=== PATIENT | female | born 1995 | race Caucasian/White ===

== ENCOUNTER 2019-12-24 23:26 | Emergency (ER) | payer OTHER ==
[~2019-12-24] VITALS: Ht 152.4 cm; Wt 90.7 kg
[2019-12-24 23:26] VITALS: BP 156/97
--- NOTE | 2019-12-25 00:03 | NUR ---
PT TAKEN TO BED 9
--- NOTE | 2019-12-25 00:05 | NUR ---
PT C/O EPIGASTRIC PAIN 06/27 BEGINNING 1600 TODAY. STATES TAKING TYLENOL AT 1900 NO RELIEF. LAST BM TODAY 1700 HARD. DENIES CONSTIPATION. C/O INTERMITTENT NAUSEA NO VOMITING. VSS. STATES SHE IS PASSING GAS BUT IS NOT BURPING.
[2019-12-25] MEDS ORDERED: NACL 0.9% 500 ML IV ONE (00:24)
[2019-12-25] MEDS ORDERED: ONDANSETRON 4 MG/2 ML VIAL IVP ONE (00:25)
[2019-12-25] MEDS ORDERED: KETOROLAC 30 MG/ML VIAL IVP ONE (00:25)
--- NOTE | 2019-12-25 00:30 | NUR ---
TORADOL, ZOFRAN AND IVF BOLUS STARTED. WILL CONTINUE TO MONITOR.
[2019-12-25 00:36] LABS: BASOPHILS # (AUTO) 0.1 K/uL (0.00-0.22); BASOPHILS % (AUTO) 0.6 % (0.0-2.0); EOSINOPHILS # (AUTO) 0.3 K/uL (0-0.4); EOSINOPHILS % (AUTO) 2.2 % (0.0-4.0); HEMATOCRIT 45.6 % (36-48); HEMOGLOBIN 14.9 g/dL (12.0-16.0); LYMPHOCYTES # (AUTO) 2.3 K/uL (2.5-16.5); LYMPHOCYTES % (AUTO) 19.4 % (20.5-51.1); MEAN CORPUSCULAR HEMOGLOBIN 28 pg (27-31); MEAN CORPUSCULAR HGB CONC 33 g/dL (33-37); MEAN CORPUSCULAR VOLUME 86.2 fL (80-94); MONOCYTES # (AUTO) 0.8 K/uL (0.8-1.0); MONOCYTES % (AUTO) 6.9 % (1.7-9.3); NEUTROPHILS # (AUTO) 8.3 K/uL (1.8-7.7); NEUTROPHILS % (AUTO) 70.9 % (42.2-75.2); PLATELET COUNT (AUTO) 309 K/uL (140-450); RED BLOOD CELL COUNT(AUTO) 5.29 MIL/uL (4.20-5.40); RED CELL DISTRIBUTION WIDTH 14.8 % (11.6-13.7); WHITE BLOOD COUNT (AUTO) 11.7 K/uL (4.8-10.8)
--- NOTE | 2019-12-25 00:55 | NUR ---
Ultrasound at bedside.
[2019-12-25 00:56] LABS: ALBUMIN 4.3 g/dL (3.4-5.0); ANION GAP 12.3 (8-16); CARBON DIOXIDE 30.3 mmol/L (21-32); POTASSIUM 3.6 mmol/L (3.5-5.1); TOTAL BILIRUBIN 0.3 mg/dL (0.0-1.0)
--- NOTE | 2019-12-25 01:15 | NUR ---
PT REPORTS IMPROVED PAIN. VSS. WILL CONTINUE TO MONITOR.
[2019-12-25 01:59] VITALS: BP 156/97
--- NOTE | 2019-12-25 02:00 | NUR ---
Patient discharged with v/s stable. Written and verbal after care instructions given and explained. Patient alert, oriented and verbalized understanding of instructions. Ambulatory with steady gait. All questions addressed prior to discharge. ID band removed. Patient advised to follow up with PMD. Rx of ZOFRAN, TRAMADOL, MOTRIN given. Patient educated on indication of medication including possible reaction and side effects. Opportunity to ask questions provided and answered.
--- NOTE | 2019-12-26 10:38 | NUR ---
Late entry. Confirmed with RN that 0.9NS IV completed at 0200
== END 2019-12-25 02:00 | disposition home or self-care (01) ==
LOC: MED 23:26
DX: R10.13 Epigastric pain (principal); R03.0 Elevated blood-pressure reading, without diagnosis of hypertension; R11.0 Nausea
CPT/HCPCS: 36415; 76705; 80053; 81002; 81025; 83690; 85025; 96374; 96375; 99284; J1885; J2405; J7030; Q0092

== ENCOUNTER 2020-03-12 10:45 | Emergency (ER) | payer OTHER ==
[~2020-03-12] VITALS: Ht 152.4 cm; Wt 89.4 kg
[2020-03-12 10:50] VITALS: BP 128/87
[2020-03-12] MEDS ORDERED: KETOROLAC 60 MG/2 ML VIAL IM ONE (11:15)
[2020-03-12 11:33] LABS: BASOPHILS % (AUTO) 0.6 % (0.0-2.0); EOSINOPHILS # (AUTO) 0.2 K/uL (0-0.4); EOSINOPHILS % (AUTO) 1.9 % (0.0-4.0); HEMATOCRIT 41.5 % (36-48); HEMOGLOBIN 13.7 g/dL (12.0-16.0); LYMPHOCYTES # (AUTO) 2.4 K/uL (2.5-16.5); MEAN CORPUSCULAR HEMOGLOBIN 29 pg (27-31); MEAN CORPUSCULAR HGB CONC 33 g/dL (33-37); MEAN CORPUSCULAR VOLUME 86.6 fL (80-94); MONOCYTES # (AUTO) 0.5 K/uL (0.8-1.0); MONOCYTES % (AUTO) 6.3 % (1.7-9.3); NEUTROPHILS % (AUTO) 62.2 % (42.2-75.2); PLATELET COUNT (AUTO) 325 K/uL (140-450); RED BLOOD CELL COUNT(AUTO) 4.79 MIL/uL (4.20-5.40); RED CELL DISTRIBUTION WIDTH 14.4 % (11.6-13.7); WHITE BLOOD COUNT (AUTO) 8.1 K/uL (4.8-10.8)
[2020-03-12 12:07] VITALS: BP 128/87
== END 2020-03-12 12:08 | disposition home or self-care (01) ==
LOC: MED 10:45
DX: N92.0 Excessive and frequent menstruation with regular cycle (principal)
CPT/HCPCS: 36415; 81002; 81025; 85025; 96372; 99283; J1885

== ENCOUNTER 2021-02-03 13:36 | Inpatient (IN) | payer OTHER, SELFPAY ==
[~2021-02-03] VITALS: Ht 152.4 cm; Wt 72.6 kg
[2021-02-03 13:42] VITALS: BP 140/89
[2021-02-03] MEDS ORDERED: KETOROLAC 30 MG/ML VIAL IVP ONE (14:55)
[2021-02-03] MEDS ORDERED: NACL 0.9% 1,000 ML IV ONE (14:55)
[2021-02-03] MEDS ORDERED: ONDANSETRON 4 MG/2 ML VIAL IVP ONE (14:55)
[2021-02-03 14:59] LABS: ALBUMIN 3.9 g/dL (3.4-5.0); CARBON DIOXIDE 27.4 mmol/L (21-32); CREATININE 0.6 mg/dL (0.6-1.3); POTASSIUM 4.4 mmol/L (3.5-5.1); TOTAL BILIRUBIN 0.5 mg/dL (0.0-1.0)
--- NOTE | 2021-02-03 15:01 | NUR ---
26 Y/O F BIB SELF FROM HOME, PATIENT PRESENTS TO ED WITH ABD PAIN RUQ RADIATES TO LUQ, PAIN STARTED 02/03/21. PT STATES SHE HAS NAUSEA AND VOMITING WITH CONSTIPATION. DENIES N/V/D; SKIN IS PINK/WARM/DRY; AAOX4 WITH EVEN AND STEADY GAIT; LUNGS CLEAR BL; HR EVEN AND REGULAR; PT DENIES ANY FEVER, CP, SOB, OR COUGH AT THIS TIME; PATIENT STATES PAIN OF 0/10 AT THIS TIME; VSS; PATIENT POSITIONED FOR COMFORT; HOB ELEVATED; BEDRAILS UP X2; BED DOWN. ER MD MADE AWARE OF PT STATUS. PT STATES SHE STILL HAS GALLBLADDER AND APPENDIX. PMH: NONE MED: TYLENOL 500MG NO RELIEF NKA
[2021-02-03 15:37] LABS: BASOPHILS % (AUTO) 0.3 % (0.0-2.0); LYMPHOCYTES # (AUTO) 1.2 K/uL (2.5-16.5); LYMPHOCYTES % (AUTO) 6.8 % (20.5-51.1); MEAN CORPUSCULAR HEMOGLOBIN 27 pg (27-31); MEAN CORPUSCULAR HGB CONC 33 g/dL (33-37); MEAN CORPUSCULAR VOLUME 81.3 fL (80-94); MONOCYTES # (AUTO) 1.1 K/uL (0.8-1.0); MONOCYTES % (AUTO) 5.9 % (1.7-9.3); NEUTROPHILS # (AUTO) 15.8 K/uL (1.8-7.7); PLATELET COUNT (AUTO) 359 K/uL (140-450); RED BLOOD CELL COUNT(AUTO) 4.91 MIL/uL (4.20-5.40); RED CELL DISTRIBUTION WIDTH 15.3 % (11.6-13.7); WHITE BLOOD COUNT (AUTO) 18.1 K/uL (4.8-10.8)
[2021-02-03] MEDS ORDERED: MORPHINE SULFATE 4 MG/ML SYR IVP ONE ×3 (16:05→19:10)
[2021-02-03] MEDS ORDERED: PIPERACILLIN/TAZOBACTAM 3.375 GM in DEXTROSE 5% 50 ML IV ONE (18:10)
[2021-02-03] MEDS ORDERED: PIPERACILLIN/TAZOBACTAM 3.375 GM VIAL IV ONE (18:14)
--- NOTE | 2021-02-03 19:08 | NUR ---
DISCONTINUED IV 20G ON L HAND DUE TO PAIN AND POOR FLUSHING, RESTARTED IV 22G ON L FOREARM, NO PAIN.
--- NOTE | 2021-02-03 19:09 | NUR ---
REPORT GIVEN TO KADIE LUO
--- NOTE | 2021-02-03 19:11 | NUR ---
RECEIVED REPORT FROM PUJA TURK FOR CONTINUITY OF CARE
[2021-02-03] MEDS ORDERED: ONDANSETRON 4 MG/2 ML VIAL IVP PRN (19:15)
[2021-02-03] MEDS: NACL 0.9% 1,000 ML IV SCH ×2 (19:15→21:01)
[2021-02-03 20:00] VITALS: BP 107/67
--- NOTE | 2021-02-03 20:26 | NUR ---
Admitted from ER TO [facility], with chief complaint of EPIGASTRIC PAIN, DESCRIBED PAIN OF 9-10, RADIATING TO THE RIGHT LOWER QUADRANT STARTED TODAY AT 0220, ON AND OFF. 26 y/o ,Female, Cooperative, AWAKE, A/OX4. RESPIRATION EVEN AND UNLABORED. CLEAR LUNG SOUNDS ON AUSCULTATION, ABDOMEN SOFT, NON-TENDER WITH POSITIVE BOWEL SOUNDS ON ALL QUADRANTS. ABLE TO AMBULATE BY HERSELF TO THE BR. HEAD TO TOE ASSESSMENT WITH CHARGE NURSE [place], SKIN IS INTACT. PAIN IN THE EPIGASTRIC AREA IS 8/10, WILL MEDICATE PER MD ORDER.oriented to call light, bed, phone,television, bathroom, smoking policy,visiting hours, procedures, ID bracelet on. Belongings list checked.
--- NOTE | 2021-02-03 20:44 | NUR ---
Patient will be admitted to care of DR. AGUILAR. Admited to [facility]. Will go to [id number]. Belongings list completed. Report to PUJA MONTES. Addendum: 02/03/21 at 2044 by [email or web address] ADMIT TIME: 1944
[2021-02-04] MEDS ORDERED: PIPERACILLIN/TAZOBACTAM 3.375 GM VIAL IV ONE (00:29)
[2021-02-04] MEDS: PIPERACILLIN/TAZOBACTAM 3.375 GM in DEXTROSE 5% 50 ML IV SCH ×3 (01:48→17:55)
--- NOTE | 2021-02-04 02:05 | NUR ---
Patient's Plan of Care was discussed and reviewed with BUSINESS MANAGEMENT MANAGER: SIMON MURPHY
[2021-02-04 03:10] VITALS: BP 104/60
[2021-02-04] MEDS: MORPHINE SULFATE 2 MG/ML SYR IVP PRN ×4 (03:15→21:54)
--- NOTE | 2021-02-04 04:00 | NUR ---
SLEEPING COMFORTABLY IN BED. VS STABLE.
[2021-02-04] MEDS: NACL 0.9% 1,000 ML IV SCH ×2 (05:15→17:21)
[2021-02-04 05:57] LABS: BASOPHILS % (AUTO) 0.3 % (0.0-2.0); EOSINOPHILS # (AUTO) 0.1 K/uL (0-0.4); EOSINOPHILS % (AUTO) 1.2 % (0.0-4.0); HEMATOCRIT 34.5 % (36-48); HEMOGLOBIN 11.4 g/dL (12.0-16.0); LYMPHOCYTES # (AUTO) 1.9 K/uL (2.5-16.5); LYMPHOCYTES % (AUTO) 18.8 % (20.5-51.1); MEAN CORPUSCULAR HEMOGLOBIN 27 pg (27-31); MEAN CORPUSCULAR HGB CONC 33 g/dL (33-37); MONOCYTES # (AUTO) 1.1 K/uL (0.8-1.0); MONOCYTES % (AUTO) 10.3 % (1.7-9.3); NEUTROPHILS # (AUTO) 7.1 K/uL (1.8-7.7); NEUTROPHILS % (AUTO) 69.4 % (42.2-75.2); PLATELET COUNT (AUTO) 316 K/uL (140-450); RED BLOOD CELL COUNT(AUTO) 4.16 MIL/uL (4.20-5.40); RED CELL DISTRIBUTION WIDTH 15.5 % (11.6-13.7); WHITE BLOOD COUNT (AUTO) 10.2 K/uL (4.8-10.8)
[2021-02-04 06:14] LABS: ALBUMIN 2.9 g/dL (3.4-5.0); ANION GAP 8.6 (8-16); CARBON DIOXIDE 29.2 mmol/L (21-32); CREATININE 0.8 mg/dL (0.6-1.3); MAGNESIUM 1.9 mg/dL (1.8-2.4); POTASSIUM 3.8 mmol/L (3.5-5.1); TOTAL BILIRUBIN 0.7 mg/dL (0.0-1.0)
--- NOTE | 2021-02-04 07:20 | NUR ---
CONDITION REMAIN STABLE. ENDORSED TO AM SHIFT NURSE FOR CONTINUITY OF CARE.
--- NOTE | 2021-02-04 07:30 | NUR ---
RECEIVED REPORT FROM NIGHT NURSE PATIENT IS AAOX4, AMBULATORY, ROOM AIR, SKIN INTACT, ON NPO, IV INTACT ON LEFT FA, FOR CONSULT ON DR IGLESIAS. SAFETY MEASURES IN PLACE AND CALL LIGHT WITHIN REACH. WILL CONTINUE TO MONITOR.
[2021-02-04 08:00] VITALS: BP 101/57
--- NOTE | 2021-02-04 09:09 | NUR ---
PATIENT HAS BEEN SCREENED AND CATEGORIZED LOW NUTRITION RISK. PATIENT WILL BE SEEN WITHIN 7 DAYS OF ADMISSION. 02/10/[address]
[2021-02-04] MEDS: ENOXAPARIN 40 MG/0.4 ML SYR SUBQ SCH (09:16)
--- NOTE | 2021-02-04 09:25 | NUR ---
MEDICATION DUE GIVEN PATIENT COMPLAINS OF PAIN 9/10 ON RIGHT UPPER QUADRANT OF THE ABDOMEN AND RADIATED TO THE RIGHT LOWER QUADRANT, CHECK VITAL SIGNS PRIOR TO MEDICATION BP 101/57 CA 70. PAIN MEDICATION GIVEN.
--- NOTE | 2021-02-04 09:47 | NUR ---
DC PLANNIN YRS OLD FEMALE PATIENT WAS ADMITTED FROM HOME WITH A DX OF CHOLECYSTITIS. PT HAS NO MEDICAL HISTORY. GB US SHOWED CHOLELITHIASIS WITH MILD GALLBLADDER WALL THICKENING AND REPRESENT ACUTE CHOLECYSTITIS. RAPID COVID TEST NEGATIVE. ADMINISTERED IVF, IV ABX ZOSYN AND MORPHINE FOR PAIN. CONSULTED WITH SURGEON DR IGLESIAS FOR POSSIBLE SURGERY. DC PLAN TO GO HOME WHEN STABLE CM TO FOLLOW. Addendum: 02/04/21 at 1127 by Glo Singh CM DC HEEL FORMER: SCHEDULED PATIENT A FOLLOW UP APPOINTMENT WITH PCP STEPHANIE SANDERS [id number] [address] 02/12/2021 AT 11:00 AM
--- NOTE | 2021-02-04 11:20 | NUR ---
SOCIAL WORK NOTE: Patient's Orientation Person Situation Place Time Information Provided By PATIENT Comments SW MET WITH PATIENT AT BEDSIDE TO COMPLETE ASSESSMENT. Director Of Exhibits, Realtionship and Phone Number ADRIANNE KAUR [phone] Healthcare Power of Home Health Care Social Worker No Does Patient Have a POLST No Identifying Problems No Social Work Triggers Is A Social Work Consult Needed No Mandate Report Filed No Explanation Of Identifying Problems PATIENT IS A 26-YEAR-OLD FEMALE ADMITTED FOR CHOLETITIS. PATIENT HASP MHX OF CHOLELITHIASIS. PATIENT DENIED SUBSTANCE ABUSE AND MENTAL HEALTH HX. Admitted From Home Pre-Admission Level Of Functioning Status Independent/Ambulatory Prior Resources/Services Used In Last 12 Months No Prior Resources Used Prior DME No Prior DME Used Dialysis Comments N/A Living Situation Apartment Lives With Family Patient Had Caregiver No Home Support No Caregiver Issues Financial Issues No Known Financial Issue Referral To The Financial Counselor Needed No Factors/Needs No D/C Needs Identified Pt/Rep Participated In Discharge Plan Yes Patient/Family Agress With Discharge Plan Yes Discharge Plan Comments TENTATIVE DISCHARGE PLAN IS FOR PATIENT TO RETURN HOME. DC Plan Status Initiated
--- NOTE | 2021-02-04 11:38 | NUR ---
PAIN RE ASSESSED AND PATIENT WAS RELIEVE FOR A SHORT DURATION AND FEELS PAIN AGAIN, BUT TOLERABLE.
--- NOTE | 2021-02-04 12:32 | NUR ---
MADE ROUNDS PATIENT IS RESTING.
--- NOTE | 2021-02-04 13:15 | NUR ---
PT OUT IN HER ROOM FOR SURGERY LAPAROSCOPIC CHOLECYSTECTOMY.
[2021-02-04] MEDS ORDERED: BUPIVACAINE-MPF 0.25% 30 ML VIAL INJ ONE (14:46)
[2021-02-04] MEDS ORDERED: LIDOCAINE/EPI 1% 1:100000 20 ML VIAL INJ ONE (14:47)
[2021-02-04] MEDS ORDERED: NEOSTIGMINE 1:1000 10 MG/10 ML VIAL ONE (14:58)
[2021-02-04] MEDS ORDERED: ROCURONIUM 50 MG/5 ML VIAL IV ONE (14:58)
[2021-02-04] MEDS ORDERED: ONDANSETRON 4 MG/2 ML VIAL ONE (14:58)
[2021-02-04] MEDS ORDERED: PROPOFOL 200 MG/20 ML VIAL IV ONE (14:58)
[2021-02-04] MEDS ORDERED: MEPERIDINE 25 MG/ML SYR ONE (14:58)
[2021-02-04] MEDS ORDERED: DEXAMETHASONE 4 MG/ML VIAL ONE (14:58)
[2021-02-04] MEDS ORDERED: SEVOFLURANE 250 ML BTL INH ONE (14:58)
[2021-02-04] MEDS ORDERED: LIDOCAINE 2% 100 MG/5 ML SYR IVP ONE (14:58)
[2021-02-04] MEDS ORDERED: fentaNYL citrate 0.05 MG/ML VIAL ONE (14:58)
[2021-02-04] MEDS ORDERED: SUCCINYLCHOLINE CHLORIDE 200 MG/10 ML VIAL IVP ONE (14:58)
[2021-02-04] MEDS ORDERED: KETOROLAC 30 MG/ML VIAL ONE (14:58)
[2021-02-04] MEDS ORDERED: GLYCOPYRROLATE 0.2 MG/ML VIAL ONE (14:58)
[2021-02-04] MEDS ORDERED: METOCLOPRAMIDE 10 MG/2 ML INJ VIAL ONE (14:58)
[2021-02-04] MEDS ORDERED: MEPERIDINE 25 MG/ML SYR IVP PRN (15:35)
[2021-02-04] MEDS ORDERED: ONDANSETRON 4 MG/2 ML VIAL IVP PRN (15:35)
[2021-02-04] MEDS: LACTATED RINGERS 1,000 ML IV SCH ×2 (15:35→23:55)
[2021-02-04] MEDS ORDERED: diphenhydrAMINE 50 MG/ML VIAL IVP PRN (15:35)
[2021-02-04 16:00] VITALS: BP 117/71
[2021-02-04] MEDS: fentaNYL citrate 0.05 MG/ML VIAL IVP PRN ×4 (16:25→16:55)
[2021-02-04] MEDS: HYDROmorphone 1 MG/ML AMP IVP PRN ×2 (16:25→16:35)
[2021-02-04] MEDS ORDERED: HYDROmorphone PFS 2 MG/ML SYR ONE (16:34)
--- NOTE | 2021-02-04 17:15 | NUR ---
PATIENT BACK IN HER ROOM S/P LAPAROSCOPIC CHOLECYSTECTOMY POSSIBLE CHOLANGIOGRAN OPEN. WITH 4 INCISION WITH DERMABOND,VITAL SIGNS TAKEN BP 117/71 [place] 67 RR 20 TEMP 97.6 OXYGEN SATURATION 94%. PATIENT COMPLAIN OF PAIN 10/10 PAIN MEDICATIONS GIVEN.
--- NOTE | 2021-02-04 18:43 | NUR ---
MADE ROUNDS PT STILL IN PAIN CHECK VITAL SIGNS BP 120/70 TX 80 TEMP 98 OXYGEN SATURATION 93%.
--- NOTE | 2021-02-04 19:10 | NUR ---
ENDORSED TO NIGHT NURSE FOR CONTINUITY OF CARE. PT IS STABLE
--- NOTE | 2021-02-04 19:11 | NUR ---
RECEIVED REPORT FROM DAY SHIFT NURSE. PT IN BED RESTING. PT AWAKE AND A LITTLE GROGGY S/P SURGERY. PT AAOX4, ABLE TO MAKE NEEDS KNOWN. RESPIRATIONS EVEN AND UNLABORED TO ROOM AIR. ABDOMEN IS SOFT AND NON-TENDER. PT WITH 4 INCISIONS ON ABDOMEN, DERMABOND IN PLACE. NO S/SX OF BLEEDING OR INFECTION NOTED. PT WITH IV ACCESS ON L FA G22 PATENT AND INTACT, IVF INFUSING WELL. PT DENIES ANY PAIN OR DISCOMFORT AT THIS TIME. NO REQUESTS MADE AT THIS TIME. SAFETY MEASURES IN PLACE, CALL LIGHT WITHIN REACH. WILL CONTINUE TO MONITOR.
[2021-02-04 20:00] VITALS: BP 118/69
--- NOTE | 2021-02-04 20:32 | NUR ---
PT ASLEEP. VS STABLE. NO S/SX OF PAIN OR DISCOMFORT NOTED. PT KEPT COMFORTABLE. CALL LIGHT WITHIN REACH. WILL CONTINUE TO MONITOR.
--- NOTE | 2021-02-04 21:54 | NUR ---
PT COMPLAINING OF ABDOMINAL PAIN 07/27. PRN MORPHINE GIVEN ORDERED. PT ALSO ASSISTED IN DRINKING WATER. PT TOLERATED WELL. WILL CONTINUE TO MONITOR.
--- NOTE | 2021-02-05 00:21 | NUR ---
PT AWAKE. ASSISTED PATIENT TO RESTROOM AND ASSISTED IN AMBULATING AROUND THE HALLS. PT TOLERATED WALKING WELL. NO COMPLAINTS MADE AT THIS TIME. WILL CONTINUE TO MONITOR.
[2021-02-05] MEDS: NACL 0.9% 1,000 ML IV SCH ×2 (01:15→11:15)
[2021-02-05] MEDS: PIPERACILLIN/TAZOBACTAM 3.375 GM in DEXTROSE 5% 50 ML IV SCH ×2 (01:45→10:00)
[2021-02-05] MEDS: MORPHINE SULFATE 2 MG/ML SYR IVP PRN ×4 (02:09→14:01)
--- NOTE | 2021-02-05 02:09 | NUR ---
PT COMPLAINING OF ABDOMINAL PAIN. PRN MORPHINE GIVEN. WILL CONTINUE TO MONITOR.
[2021-02-05 04:00] VITALS: BP 104/65
--- NOTE | 2021-02-05 04:14 | NUR ---
VS STABLE. PT RESTING IN BED. VERBALIZED TOLERABLE PAIN AT THIS TIME. PT NOT IN DISTRESS. IVF INFUSING WELL. WILL CONTINUE TO MONITOR.
--- NOTE | 2021-02-05 06:24 | NUR ---
PT COMPLAINING OF ABDOMINAL PAIN. PRN MORPHINE GIVEN ORDERED. WILL CONTINUE TO MONITOR.
--- NOTE | 2021-02-05 07:10 | NUR ---
REC' REPORT FROM CONTROLLED AREA CHECKER NURSE, PT SLEEPING, NS @100N INFUSING L.FA22 G. CALL LIGHT WITHIN REACH. BED LOWEST POSITION.
--- NOTE | 2021-02-05 07:26 | NUR ---
endorsed to day shift nurse for continuity of care
[2021-02-05 08:00] VITALS: BP 108/74
[2021-02-05] MEDS: LACTATED RINGERS 1,000 ML IV SCH (08:15)
[2021-02-05] MEDS: ENOXAPARIN 40 MG/0.4 ML SYR SUBQ SCH (08:54)
--- NOTE | 2021-02-05 09:05 | NUR ---
ADMINISTERED MEDICATIONS PER MD ORDER, MOA AND SIDE EFFECTS DISCUSSED WITH PT WHO VERBALIZED UNDERSTANDING, PT TOLERATED MEDICATION WELL. ANALGESIC ADMINISTERED, IV CATHETER PATENT. IV SITE DRY, CLEAN INTACT. WILL CONTINUE TO MONITOR,
[2021-02-05] MEDS ORDERED: KETOROLAC 30 MG/ML VIAL IVP PRN (12:05)
[2021-02-05 15:17] VITALS: BP 108/74
--- NOTE | 2021-02-05 16:15 | NUR ---
DISCHARGED VIA WHEELCHAIR TO PRIVATE VEHICLE, DISCHARGE PACKET GIVEN TO PT, DISCUSSED FOLLOW UP APPOINTMENT W/ PCP AND SURGEON PT TO CALL, DISCUSSED POST OP INSTRUCTIONS RE: INCISION CARE, DIET, RETURN TO WORK ORDER. ID BAND AND INTACT IV CATHETER REMOVED. PT STABLE UPON DISCHARGE
== END 2021-02-05 16:20 | disposition home or self-care (01) | DRG 263 ==
LOC: MED 13:36 → MTU 19:14
PROVIDERS: ADMIT Hospitalist; ATTEND Hospitalist
PROC: 0FT44ZZ Resection of Gallbladder, Percutaneous Endoscopic Approach (ICD-10-PCS; principal; 2021-02-04 14:50)
DX: K80.00 Calculus of gallbladder with acute cholecystitis without obstruction (principal); Z20.822 Contact with and (suspected) exposure to COVID-19; Z83.3 Family history of diabetes mellitus; Z82.3 Family history of stroke
CPT/HCPCS: 36415; 76705; 80053; 83690; 83735; 85025; 87040; 87081; 88304; 99285; J0330; J1100; J1170; J1650; J1885; J2001; J2175; J2270; J2405; J2543; J2704; J2710; J2765; J3010; J3490; J7030; J7060; J7120